=== PATIENT | female | born 1990 | race Asian ===

== ENCOUNTER 2020-02-01 14:20 | Emergency (ER) | payer OTHER ==
[2020-02-01 14:33] VITALS: BP 117/82; PULSE 75; TEMP 98.1; BMI 38.7
--- NOTE | 2020-02-01 15:11 | PDOC ---
History of Present Illness - General Chief Complaint: Injury Stated Complaint: FINGER INJURY Time Seen by Provider: 02/01/20 14:36 History Source: Patient Exam Limitations: Clinical Condition - History of Present Illness Initial Comments: 02/01/20 15:29 Patient with no significant past medical history presenting for [facility] urgent care for evaluation of tuft fracture to right index finger and avascularization to the tip of right index finger. Patient had a crush injury to right index finger from a storm door 3 days ago and was seen in [facility] urgent care which she was prescribed Augmentin antibiotics and advised to follow-up in 2 days due to nailbed injury and bleeding from nail bed. Patient went to urgent care today and was advised to come to the ED to be seen by hand specialist as there was avascularization of the tip of right index finger. Patient report mild decreased sensation to the tip of right index finger. Patient still having some mild bleeding from nail bed. Patient given finger splint from urgent care. Denies any other symptoms Occurred: reports: other (3 days) Pain Location: reports: upper extremity (right index finger) Method of Injury: Yes: direct blow Associated Symptoms (Fall): denies symptoms Past History - Medical History Allergies/Adverse Reactions: Allergies Allergy/AdvReac Type Severity Reaction Status Date / Time No Known Allergies Allergy Verified 02/01/20 14:27 CVA: No COPD: No Thyroid Disease: Yes (hypothyroid) - Reproductive History Is Patient Now?: No - Psycho-Social/Smoking History Smoking History: Never smoked - Substance Abuse Hx (Audit-C & DAST Scrn) How often the patient has a drink containing alcohol: Never Score: In Men: 4 or > Positive; In Women: 3 or > Positive: 0 Screen Result (Pos requires Nsg. Audit-10AR): Negative In the last yr the pt used illegal drug/Rx for NonMed reason: No Score: Yes response is considered Positive: 0 Screen Result (Positive result requires Nsg. DAST-10): Negative Review of Systems - Review of Systems Able to Perform ROS?: Yes Is the patient limited Algerian proficient: No Constitutional: No: Chills, Fever, Malaise HEENTM: No: Symptoms Reported, See HPI, Eye Pain, Blurred Vision, Tearing, Recent change in vision, Double Vision, Cataracts, Ear Pain, Ocular Prothesis, Ear Discharge, Nose Pain, Nose Congestion, Tinnitus, Nose Bleeding, Hearing Loss, Throat Pain, Throat Swelling, Mouth Pain, Dental Problems, Difficulty Swallowing, Mouth Swelling, Other Respiratory: No: Symptoms reported, See HPI, Cough, Orthopnea, Shortness of Breath, SOB with Exertion, SOB at Rest, Stridor, Wheezing, Productive cough, Hemoptysis, Other Cardiac (ROS): No: Symptoms Reported, See HPI, Chest Pain, Edema, Irregular Heart Rate, Lightheadedness, Palpitations, Syncope, Chest Tightness, Other Musculoskeletal: Yes: Symptoms Reported, See HPI, Muscle Pain (tip of right in dex finger) *Physical Exam - Vital Signs Last Vital Signs Temp Pulse Resp BP Pulse Ox 98.1 F 75 20 117/82 97 02/01/20 14:27 02/01/20 14:27 02/01/20 14:27 02/01/20 14:27 02/01/20 14:27 - Physical Exam 02/01/20 15:39 GENERAL: Well developed, well nourished. Awake and alert. No acute distress. MUSCULOSKELETAL : Moderate tenderness to distal phalange of right index finger. Full range of motion of right index finger. 5 out of 5 strength of right index finger.. No bony deformities EXTREMITIES: mild bleeding underneath fingernail with discoloration of nailbed with linear area of what seems to be iny laceration on the fingernail wih no active bleeding and 1 mm area of avascularization to tip of right index finger. Normal capillary refill to the rest of the finger. Full range of motion of finger. moderate tenderness to nailbed of right index finger. No fingernail evulsion. Normal sensory to whole finger except 1 mm area of devascularization which patient reports feels like callus. SKIN: Warm and dry. Normal capillary refill to right index finger except 1 mm area of devascularization to tip of distal phalange of right index finger. NEUROLOGICAL: Alert, awake, appropriate. No motor deficits in the lower extremities. Gait is normal without ataxia. PSYCHIATRIC: Cooperative. Good eye contact. Appropriate mood and affect. 02/01/20 15:40 General Appearance: Yes: Nourished, Appropriately Dressed. No: Apparent Distress ED Treatment Course - RADIOLOGY Radiology Studies Ordered: Category Date Time Status FINGER(S) RIGHT [RAD] Stat Radiology 02/01/20 14:56 Ordered Medical Decision Making - Medical Decision Making 02/01/20 15:32 Patient with no significant past medical history presenting for [facility] urgent care for evaluation of tuft fracture to right index finger and avascularization to the tip of right index finger. Patient had a crush injury to right index finger from a storm door 3 days ago and was seen in [facility] urgent care which she was prescribed Augmentin antibiotics and advised to follow-up in 2 days due to nailbed injury and bleeding from nail bed. Patient went to urgent care today and was advised to come to the ED to be seen by hand specialist as there was avascularization of the tip of right index finger. Patient report mild decreased sensation to the tip of right index finger. Patient still having some mild bleeding from nail bed. Patient given finger splint from urgent care. Denies any other symptoms Exam significant for mild bleeding underneath fingernail with discoloration of nailbed with linear area of what seems to be iny laceration on the fingernail wih no active bleeding and 1 mm area of avascularization to tip of right index finger. Normal capillary refill to the rest of the finger. Full range of motion of finger. Mild tenderness to nailbed of right index finger. No fingernail evulsion. Normal sensory to whole finger except 1 mm area of devas cularization which patient reports feels like callus. X-ray of right index finger shows barely visible linear horizontal fracture to distal tip of distal phalange of right index finger. Called and spoke to orthopedic hand specialist KULWANT Barton who reviewed patient imaging and report nothing to do at this point and patient can follow-up in outpatient clinic with Dr. Cross orthopedic hand specialist on Monday. Patient finger splint was replaced back on. Patient advised to continue Augmentin antibiotics prescribed from urgent care and follow-up with orthopedic hand specialist as instructed. Patient agrees with treatment plan and patient will follow-up with hand specialist Discharge - Discharge Information Problems reviewed: Yes Clinical Impression/Diagnosis: Crushing injury of right index finger, initial encounter Condition: Stable Disposition: HOME - Admission No - Follow up/Referral Referrals: Abiodun Skinner MD [Staff Physician] - 2 Days (Call on Monday to follow-up in the office on Monday) - Patient Discharge Instructions Patient Printed Discharge Instructions: DI for Crush Injury Additional Instructions: Hand specialist request for you to follow-up in the clinic on Monday. Call the clinic on Monday to be put on the schedule for choosing. Continue prescribed Augmentin antibiotics. Keep finger splint on until hand specialist follow-up - Post Discharge Activity
== END 2020-02-01 15:36 | disposition home or self-care (01) ==
LOC: JERFT 14:20 → JER 14:20 → JERFT 15:36
DX: S67.190A Crushing injury of right index finger, initial encounter (principal)
CPT/HCPCS: 73140-TC-RT-FY; 99283-25